=== PATIENT | male | born 1950 ===

== ENCOUNTER 2022-03-25 23:21 | Emergency (ER) | payer SELFPAY ==
[~2022-03-25] VITALS: Ht 167.6 cm; Wt 73.0 kg
[2022-03-26 01:10] VITALS: BP 144/92
== END 2022-03-26 01:30 | disposition home or self-care (01) ==
LOC: EMS 23:24
DX: F15.10 Other stimulant abuse, uncomplicated (principal); Z59.00 Homelessness unspecified
CPT/HCPCS: 99281; Z7502